=== PATIENT | male | born 1950 | race Caucasian/White ===

== ENCOUNTER 2017-03-07 16:00 | Inpatient (IN) | payer MEDICARE ==
[~2017-03-07] VITALS: Ht 177.8 cm; Wt 85.0 kg
--- NOTE | ~2017-03-07 | ECHO ---
Transesophageal Echocardiography Report (TA) Demographics Patient Name MARCUS MUNOZ Date of Study 03/08/2017 Patient Number [id number] Visit Number [id number] Date of 1950 Room Number G6308 Accession Number [id number] Gender Male Age 66 year(s) Referring Tyrell Rose MD Travel Pta Mikaela Son RDCS, Physician RVT Physician Interpreting Sina Newton Chlorine Cells Operator Physician MD Supervising Ordering Physician Sina Newton MD/MLP Nurse Stress Petroleum Engineering Professor Conclusions Summary The left ventricle/ right ventricle is normal in size . The estimated left ventricular ejection fraction is 60-65%. Interatrial septum appears grossly normal. The left ventricle is normal in size . Minimal thoracic aorta plaque. Calcified aorta, it is not well seen. No significant valvular abnormalities. There is no thrombus in the left atrial appendage. There is no LA or LA appendage thrombus or spontaneous contrast. No left atrial appendage mass. There is no evidence of patent foramen ovale or atrial septal defect by color Doppler. The left atrium is mildly dilated. No evidence for cardiac source of emboli. Procedure Type of Study TA procedure Procedure Date Date: 03/08/2017 Start: 02:40 PM Study Location: Inpatient Portable Technical Quality: Adequate visualization Indications:CVA. Appropriate Use Criteria: 9 Patient Status: Routine Rhythm: Within normal limits HR: 78 bpm BP: 127/70 mmHg Findings Left Ventricle The left ventricle is normal in size . No e/o LV apical thrombus. Right Ventricle Interatrial septum appears grossly normal. Left Atrium There is no thrombus in the left atrial appendage. There is no LA or LA appendage thrombus or spontaneous contrast. No left atrial appendage mass. There is no evidence of patent foramen ovale or atrial septal defect by color Doppler. The left atrium is mildly dilated. Right Atrium The right atrium is not dilated. Mitral Valve Normal mitral valve structure and function. Aortic Valve Normal aortic valve structure and function. Tricuspid Valve Normal appearing tricuspid valve. Pulmonic Valve Normal pulmonic valve structure and function. Miscellaneous Minimal thoracic aorta plaque. Calcified aorta, it is not well seen. The patient was brought to the [facility] lab in the fasting state after informed consent was obtained in the written and verbal format. He was prepped with Lidocaine gel and Cetacaine spray as usual. Bite block was placed by nm. Once adequate anesthesia was obtained with anesthesia guidance with propofol sedation the TA probe was placed by me down into the stomach. It was pulled back slightly after a few views were obtained in the transgastric level to the transesophageal position where the majority of the case was carried out. At the end of the case the probe was rotated and withdrawn. Patient tolerated the procedure well. Signature dtt: ES ROGEL dtd: 03/08/17 8730 Physician Self Edit
--- NOTE | ~2017-03-07 | OR ---
PATIENT'S NAME: MARCUS MUNOZ [facility] AGE: 66 Y [address] ROOM: [place] [address] LOCATION: GPCU ADMIT DATE: 03/07/2017 OR/Procedure Report DISCHARGE DATE: FAMILY PHYSICIAN: Mikaela Torres National Park Ranger ATTENDING PHYSICIAN: Leila Tian SURGEON: Milton Santillan MD DIRECTOR OF HOUSING: DATE OF PROCEDURE: 03/07/2017 PREOPERATIVE DIAGNOSIS: Acute ischemic leg, right sided. POSTOPERATIVE DIAGNOSIS: Acute ischemic leg, right sided. PROCEDURE: Attempted popliteal embolectomy and tibial embolectomy. TREE PRUNER: SILVANA Alonso. ANESTHESIA: General. ESTIMATED FLUID LOSS: 50 mL. FINDINGS: Despite removal of significant amount of clot burden from the tibial vessels as well as the popliteal artery, we did not have return of pulses in the foot. The patient likely ischemic for approximately five days. In one leg, he will likely require a below-knee amputation. INDICATIONS: The patient was brought into the operating room emergently from the emergency room. The patient presented with a 5-day history of severe pain in the foot which had now become numb and insensate. He still had minimal motor function intact. Foot was completely white and mottled and the patient states had been having pain for approximately 5 days prior to this. Only sought medical treatment today. Preop ultrasound showed that he had a distal popliteal and tibial clot with patent proximal vessels. The patient has no history of atrial fibrillation, but this is likely the source of his clot. DESCRIPTION OF PROCEDURE: The patient was brought to the operating room, placed supine on the operating room table, prepped and draped in a sterile manner. Preoperative time-out was performed. The patient received preoperative antibiotics. We made a standard approach to the popliteal artery as well as the tibial vessels. Using a medial approach, we transected the fascia, brought the gastrocnemius muscle inferiorly, dissected out the popliteal vein in a 360-degree fashion and moved it out of the way covering the arterial structures. We then gave 5000 units of heparin. We then placed vessel loops proximally and distally on the popliteal artery as well as the TP trunk. We then made arteriotomy. There was surinder clot right at the PATIENT'S NAME: MARCUS MUNOZ [facility] AGE: 66 Y [address] ROOM: [address] [address] [facility] AD[facility] DATE: 03/07/2017 OR/Procedure Report DISCHARGE DATE: FAMILY PHYSICIAN: Mikaela Torres National Park Ranger ATTENDING PHYSICIAN: Leila Tian arteriotomy. We then passed a three and four Tom both proximally and distally as well as a two Tom into the tibial vessels. Removed significant clot burden with back flow from the tibial vessels, and then reapproximated the artery with interrupted 6-0 Prolene. There was a good signal and pulse in the popliteal artery at this level. Performed Doppler test in the feet, but without any return of any signal, given the length that the patient went without care and without anticoagulation. He had a poor prognosis which I had explained to him prior to the surgery. We did not reverse heparin. We started a heparin drip on the table. We reapproximated deep layers with 2-0 and 3-0 Vicryl. Skin was closed with sebas. The patient was transferred to recovery room and to the floor. We would allow the foot to demarcate and then decide on the level of amputation. MD SOTERO SHEN/khang /[id number] d: 03/08/17 0141 t: 03/09/17 0929, OPERATIVE SUMMARY
--- NOTE | ~2017-03-07 | DS ---
PATIENT'S NAME: MARCUS MUNOZ [facility] AGE: 66 Y [address] ROOM: [place] [address] LOCATION: GPCU ADMIT DATE: 03/07/2017 Discharge Summary DISCHARGE DATE: 03/11/2017 FAMILY PHYSICIAN: Mikaela Torres Province Archivist ATTENDING PHYSICIAN: Leila Tian FINAL DIAGNOSES: 1. Acute ischemic right leg secondary to thrombus. 2. Adult onset diabetes mellitus. 3. Peripheral neuropathy. 4. Gastroesophageal reflux disease. PROCEDURE: He had a right common femoral and superficial femoral artery embolectomy and common femoral endarterectomy. Please see the history and physical dictated by Dr. Dee for details of admission. LABORATORY DATA: On admission, sodium 140, potassium 3.6, chloride 107, CO2 23, BUN 12, and creatinine 1.1. These values remained stable. At discharge, creatinine was 0.1. On admission, white blood cell count was 7.1, hemoglobin 15.8, hematocrit 46.8, and platelet count 249. Hemoglobin at discharge 12.9 and platelet count 211. RADIOLOGIC STUDIES: CT angiogram of the abdomen and lower extremities showed an elongated thrombus in the proximal right superficial femoral artery that had the windsock morphology and nearly completely occluded the lumen. Cardiovascular Data: Transthoracic echocardiogram showed an EF was 60% to 65% and did not show any evidence of a left atrial appendage. HOSPITAL COURSE: The patient presented with an acute ischemic right leg. The patient was initiated on heparin and was found to have hyperglycemia. He had been told in the past that he was borderline diabetic. He was put on sliding scale insulin. Cardiology did see him and did not notice any left atrial appendage. A CT angiogram was done, results of which already given. Dr. Santillan did feel that the patient needed to go to the operating room that evening and requested that the heparin not be discontinued en route. The patient underwent the procedure. Please see Dr. Santillan's op note for full details. Postoperatively, he was put back on PCU and continued on IV heparin and a workup was done for hypercoagulable state. On the , it was felt that he was stable to be switched to Xarelto. Postoperatively, his incision did well. He continued to have a mottled, purplish-discolored great toe which the patient was well aware would need to be followed as an outpatient. In terms of his diabetes, he had been initiated on metformin. His sugars on PATIENT'S NAME: MARCUS MUNOZ [facility] AGE: 66 Y [address] ROOM: [id number] [place], [place] [address] LOCATION: GPCU ADMIT DATE: 03/07/2017 Discharge Summary DISCHARGE DATE: 03/11/2017 FAMILY PHYSICIAN: Mikaela Torres Province Archivist ATTENDING PHYSICIAN: Leila Tian the 1st were; his fasting sugar was 75. Decision was made to cut that down to Glucophage 500 mg once daily. It was felt that the patient was stable for discharge and discharged to home. He is follow up with Vascular in [address] Mikaela Torres in 3-5 days at [facility]. MEDICATIONS: 1. Protonix 40 mg daily. 2. Cymbalta 60 mg daily. 3. Multivitamin daily. 4. Lipitor 40 mg daily. 5. Metformin 500 mg daily. 6. Xarelto 20 mg twice daily with meals. 7. Cummings 1-2 every 4 hours as needed for pain. 8. He was given a coupon for the Xarelto. This case was discussed in detail with Dr. Torres. The side effects of the new medications were explained to the patient. JANNY CERVANTES MD LAW/modl /[id number] d: 03/12/171909 t: 03/15/171929, DISCHARGE SUMMARY
--- NOTE | ~2017-03-07 | OR ---
PATIENT'S NAME: MARCUS MUNOZ [facility] AGE: 66 Y [address] ROOM: [place] [address] LOCATION: GPCU ADMIT DATE: 03/07/2017 OR/Procedure Report DISCHARGE DATE: FAMILY PHYSICIAN: Mikaela Torres Dust Collector Operator ATTENDING PHYSICIAN: Jaylan MORALES SURGEON: Milton Santillan MD PHARMACIST IN CHARGE OWNER: DATE OF PROCEDURE: 03/09/2017 PREOPERATIVE DIAGNOSIS: Acute embolic clot to the common femoral artery on the right. POSTOPERATIVE DIAGNOSIS: Acute embolic clot to the common femoral artery on the right. PROCEDURE PERFORMED: Right common femoral and superficial femoral artery embolectomy. AUTOMOTIVE FINANCE MANAGER: SILVANA Alonso ANESTHESIA: General. ESTIMATED BLOOD LOSS: 50 mL. INDICATION FOR PROCEDURE: This is a patient whom we took approximately 48 hours ago for a popliteal and tibial embolectomy. At that time, duplex would not show any further clot in the more proximal portions of the artery. In investigating where his clot was coming from, he underwent an echo as well as a CT angio of the abdomen and pelvis. The CT angio showed a heavily calcified aorta with multiple sources of possible embolic clot, but it also did show that he had a large clot sitting in his common femoral and extending in his SFA on the right. We brought him back to the operating room this morning to remove that clot and restore normal blood flow to his right lower extremity. DESCRIPTION OF PROCEDURE: The patient was brought to the operating room, placed supine on the operating table, and prepped and draped in a sterile manner. Preoperative time-out was performed. The patient received preoperative antibiotics. We made a transverse incision in the right groin, dissected down to the fascia, incised the fascia in a longitudinal manner, and dissected out the common femoral, superficial femoral, as well as the profunda. We placed loops on all 3 vessels. We gave 5000 units of heparin. We clamped on all 3 vessels. We then made a transverse arteriotomy. On doing so, we had no backflow from the SFA. We passed a four Tom multiple times, removing a large burden of clot. We also opened up the common femoral, evacuating the clot from the common femoral as well. On further investigation PATIENT'S NAME: MARCUS MUNOZ [facility] AGE: 66 Y [address] ROOM: [address] [address] [facility] AD[facility] DATE: 03/07/2017 OR/Procedure Report DISCHARGE DATE: FAMILY PHYSICIAN: Mikaela Torres Dust Collector Operator ATTENDING PHYSICIAN: Jaylan MORALES of the artery, we ligated significant plaque burden right there at the level of the common femoral, SFA, and profunda junction. We extended our incision in a longitudinal manner, reapproximated the sidewalls with interrupted 5-0 Prolene, and then did a standard bovine pericardial patch using 2 running 6-0 [place] sutures. We removed the clamps. There was excellent flow in the SFA. There was a strong PT signal. The patient has never regained an anterior tibial signal even from his first operation. Deep layers were closed with 2-0 and 3-0 Vicryl. Heparin was not reversed. Skin was closed with sebas. The patient tolerated the procedure well and was transferred to the recovery room and then back to the floor. MD SOTERO SHEN/modl /[id number] d: 03/09/17 1201 t: 03/13/17 1458, OPERATIVE SUMMARY
[~2017-03-07 16:00] MED LIST changes: -GLUCOPHAGE500 MG PO; -LIPITOR40 MG PO; -NORCO 5-325 TA1 EACH PO; -ONE DAILY FOR1 EAC1 PO; -XARELTO20 MG PO
[2017-03-07] MEDS ORDERED: ONE DAILY FOR1 EAC1 PO (17:17)
--- NOTE | 2017-03-07 17:25 | NUR ---
Pt is 66 y/o male admit for right ischemic lower leg for . Pt allergic to aspirin. Red and yellow bracelet on. Hx gerd,hiatal hernia,asthma as child,pneumonia,seasonal allergies,hx N/T in hands and feet. Resides at home alone. Went to the Dr today for right foot pain which started 5 days ago and his R)great toe went numb yesterday. Pt taken to [facility] for an embolectomy on R)leg. No pedal pulses on R)foot. R)great toe blue/purple in color. Pt alert and oriented x3.
[2017-03-07 17:56] LABS: BASOPHIL % 0.4 %; EOSINOPHIL # 0.1 K/uL (0.0-0.5); HEMATOCRIT 46.8 % (37.0-53.0); HEMOGLOBIN 15.8 g/dL (11.0-16.0); IMMATURE GRANULOCYTE % 0.1 %; LYMPHOCYTE # 1.9 K/uL (0.8-4.0); LYMPHOCYTE % 26.9 %; MCH 30.3 pg (27.0-34.0); MCHC 33.8 gm/dL (32.0-36.5); MCV 89.8 fl (83.0-98.0); MONOCYTE # 0.7 K/uL (0.0-1.0); MONOCYTE % 10.1 %; MPV 9.2 fl (9.4-12.4); NEUTROPHIL # (ANC) 4.4 K/uL (1.4-9.0); NEUTROPHIL % 61.5 %; NRBC % 0 /100WBC (0-0.00); PLATELET COUNT 269 K/uL (150-450); RBC 5.21 M/uL (3.50-5.50); WBC 7.1 K/uL (4.0-11.0)
[2017-03-07 18:09] LABS: ANION GAP 13.6 (10.0-19.0); BLOOD UREA NITROGEN 12 mg/dL (6-24); CHLORIDE 107 mMol/L (96-110); CO2 23 mMol/L (22-32); CREATININE 1.1 mg/dL (0.6-1.3); ESTIMATED GFR (MDRD EQUATION) > 60; POTASSIUM 3.6 mMol/L (3.7-5.1); SODIUM 140 mMol/L (135-145)
[2017-03-07 20:52] LABS: PROTIME 10.5 SECONDS (9.8-11.4)
[2017-03-08 02:52] LABS: BASOPHIL % 0.1 %; HEMATOCRIT 44.3 % (37.0-53.0); HEMOGLOBIN 14.9 g/dL (11.0-16.0); IMMATURE GRANULOCYTE % 0.3 %; LYMPHOCYTE # 1.2 K/uL (0.8-4.0); LYMPHOCYTE % 11.1 %; MCH 30.5 pg (27.0-34.0); MCHC 33.6 gm/dL (32.0-36.5); MCV 90.8 fl (83.0-98.0); MONOCYTE # 0.5 K/uL (0.0-1.0); MONOCYTE % 4.9 %; MPV 9.1 fl (9.4-12.4); NEUTROPHIL # (ANC) 8.8 K/uL (1.4-9.0); NEUTROPHIL % 83.6 %; NRBC % 0 /100WBC (0-0.00); PLATELET COUNT 277 K/uL (150-450); RBC 4.88 M/uL (3.50-5.50); RDW-CV 13.1 % (11.9-14.6); WBC 10.5 K/uL (4.0-11.0)
[2017-03-08 03:04] LABS: ANION GAP 11.6 (10.0-19.0); BLOOD UREA NITROGEN 12 mg/dL (6-24); CALCIUM 8.1 mg/dL (8.5-10.5); CHLORIDE 106 mMol/L (96-110); CO2 24 mMol/L (22-32); CREATININE 0.9 mg/dL (0.6-1.3); ESTIMATED GFR (MDRD EQUATION) > 60; POTASSIUM 4.6 mMol/L (3.7-5.1); SODIUM 137 mMol/L (135-145)
--- NOTE | 2017-03-08 04:29 | NUR ---
Patient returns to floor from PACU at 2039. Has endraectomy performed by Dr. Santillan. Patient R) foot and great toe were mottled and purple upon arrival to [facility] from [facility]. Returns from OR with incisional site to R) popliteal site. Drainage is small and there is no new noted throughout this shift. Marked borders wit sharpie. [place] dressing to site C/D/I. Toe and foot are now cool to touch, similar to temperature of L) foot. Doppler pulse located by Dr. Dee on pedal but hard to identify. Popliteal pulse is faint. Dr. Santillan reports that patient may have amputation in the future. Patient VSS on R/A. PRN norco given for incisional site pain. Calm and cooperative with cares. No numbness/tingling/pain in R) foot. To advance to a regular diet this AM.
--- NOTE | 2017-03-08 18:09 | NUR ---
Significant Events: Patient is A&Ox3 and cooperative with cares. Patient is a stand-by assist. Vital signs: HR 60-70's, SBP 110-120's. Patient on room air with clear lung sounds. Patient voided x2 per urinal, no BM's. Patient has a dressing to his right medial knee, with no new drainage outside what had been previously marked. IV's in right wrist that and left posterior forearm. Patient had a CTA and TA today with no complications. Embolism detected in right femoral artery and patient to have procedure in OR tomorrow. Continue per plan of care.
--- NOTE | 2017-03-09 04:44 | NUR ---
Significant Event:Patient very pleasant. A/Ox3. VSS on RA. Afebrile. Kept on bedrest d/t clot in femoral. Heparin gtt continues at 1200 units/h with next ptthp at 0500. Per MD order do not stop heparin even for transfer to OR. Plan is for R)common femoral embolectomy at 0830. Patient has been NPO since midnight. Voids per urinal with no difficulties. Follow up:Surgical checklist started and on the chart.
[2017-03-09 05:57] LABS: ANION GAP 10.4 (10.0-19.0); BLOOD UREA NITROGEN 8 mg/dL (6-24); CHLORIDE 110 mMol/L (96-110); CO2 24 mMol/L (22-32); CREATININE 0.8 mg/dL (0.6-1.3); ESTIMATED GFR (MDRD EQUATION) > 60; POTASSIUM 4.4 mMol/L (3.7-5.1); SODIUM 140 mMol/L (135-145)
[2017-03-09 06:03] LABS: BASOPHIL % 0.5 %; EOSINOPHIL # 0.2 K/uL (0.0-0.5); EOSINOPHIL % 1.9 %; HEMATOCRIT 37.8 % (37.0-53.0); HEMOGLOBIN 12.4 g/dL (11.0-16.0); IMMATURE GRANULOCYTE % 0.4 %; LYMPHOCYTE # 2.4 K/uL (0.8-4.0); LYMPHOCYTE % 30.4 %; MCH 30.2 pg (27.0-34.0); MCHC 32.8 gm/dL (32.0-36.5); MONOCYTE # 0.8 K/uL (0.0-1.0); MONOCYTE % 10.5 %; MPV 9.3 fl (9.4-12.4); NEUTROPHIL # (ANC) 4.4 K/uL (1.4-9.0); NEUTROPHIL % 56.3 %; NRBC % 0 /100WBC (0-0.00); PLATELET COUNT 227 K/uL (150-450); RBC 4.11 M/uL (3.50-5.50); RDW-CV 13.3 % (11.9-14.6); WBC 7.8 K/uL (4.0-11.0)
--- NOTE | 2017-03-09 15:51 | NUR ---
Significant Event: A/Ox3. [id number]. P-60-70s. Afebrile. Room air. L) FA IV infusing heparin 1200units hr (next ppthp at 1800) and D5 1/2 with 20mEq of KCL 50ml/hr. Patient had endarterectomy and embolectomy in OR this AM. Returned to PCU at noon. R) groin air strip dressing D/I with shadowed drainage marked. No hematoma. Diastal pulses dopplered. Color to R) foot/toes has improved now there is minimal purple color to big toe and 2nd toe. 1+ edema to R) Lower extremity. R) popliteal dressing D/I shadowed drainage no change this shift. Voids per urinal. Off bedrest at 1700.
--- NOTE | 2017-03-10 04:42 | NUR ---
Significant Event:A&O. VSS.RA. R GROIN WITH MARKED DRAINAGE. UP TO BATHROOM/SBA. TIBIAL BANDAGE WITH MARKED DRAINAGE. C/O PAIN AT INCISION SITE AND TOES. NORCO GIVEN x2. morphine x1. WARM TO TOUCH, DOPPLER R PEDAL PULSE. HEPARIN GTT @ 1100U/HR CURRENTLY. Follow up:CONT W/PLAN OF CARE
[2017-03-10 07:36] LABS: BASOPHIL % 0.5 %; EOSINOPHIL # 0.2 K/uL (0.0-0.5); EOSINOPHIL % 2.6 %; HEMATOCRIT 38.5 % (37.0-53.0); HEMOGLOBIN 12.7 g/dL (11.0-16.0); IMMATURE GRANULOCYTE % 0.2 %; LYMPHOCYTE # 1.8 K/uL (0.8-4.0); LYMPHOCYTE % 28.1 %; MCH 30.7 pg (27.0-34.0); MONOCYTE # 0.7 K/uL (0.0-1.0); MONOCYTE % 10.5 %; MPV 9.1 fl (9.4-12.4); NEUTROPHIL # (ANC) 3.7 K/uL (1.4-9.0); NEUTROPHIL % 58.1 %; NRBC % 0 /100WBC (0-0.00); PLATELET COUNT 206 K/uL (150-450); RBC 4.14 M/uL (3.50-5.50); RDW-CV 13.7 % (11.9-14.6); WBC 6.3 K/uL (4.0-11.0)
[2017-03-10 07:47] LABS: BLOOD UREA NITROGEN 6 mg/dL (6-24); CHLORIDE 105 mMol/L (96-110); CO2 28 mMol/L (22-32); CREATININE 0.7 mg/dL (0.6-1.3); ESTIMATED GFR (MDRD EQUATION) > 60; SODIUM 139 mMol/L (135-145)
--- NOTE | 2017-03-10 19:22 | NUR ---
Significant Event: A/Ox3. VSS. Room air. IV saline locked. R) groin air strip dressinf D/I with shadow drainage marked no changes this shift. L) popliteal incision TYLER, stappled with edges approximated. Pulses dopplerable in the R) lower extremity. Heparin gtt discontinued and patient started on Xeralto. New diabetic started on metformin. Diabetic ed to see patient prior to discharge home tomorrow.
[2017-03-11 04:59] LABS: BASOPHIL % 0.3 %; EOSINOPHIL # 0.2 K/uL (0.0-0.5); EOSINOPHIL % 2.6 %; HEMATOCRIT 38.1 % (37.0-53.0); HEMOGLOBIN 12.9 g/dL (11.0-16.0); IMMATURE GRANULOCYTE % 0.3 %; LYMPHOCYTE # 1.3 K/uL (0.8-4.0); LYMPHOCYTE % 20.7 %; MCH 30.9 pg (27.0-34.0); MCHC 33.9 gm/dL (32.0-36.5); MCV 91.1 fl (83.0-98.0); MONOCYTE # 0.7 K/uL (0.0-1.0); MONOCYTE % 10.7 %; MPV 9.4 fl (9.4-12.4); NEUTROPHIL # (ANC) 4.1 K/uL (1.4-9.0); NEUTROPHIL % 65.4 %; NRBC % 0 /100WBC (0-0.00); PLATELET COUNT 211 K/uL (150-450); RBC 4.18 M/uL (3.50-5.50); RDW-CV 13.5 % (11.9-14.6); WBC 6.2 K/uL (4.0-11.0)
--- NOTE | 2017-03-11 07:18 | NUR ---
Significant Event: Patient is alert/oriented x3. Vital signs are stable. On room air. [place] given x2 last night, with relief. Right foot doppled, good pulses. Patient ambulates in room independently. Last dose of Ancef this morning. Follow up: Dismiss to home today?
--- NOTE | 2017-03-11 11:48 | NUR ---
Introduced self and care management services to patient. Going home today. Denies concerns about going home. Lives alone. Says he has 4 sons in the area who can help him if he needs anything at home. Denies needs.
[2017-03-11] MEDS ORDERED: LIPITOR40 MG PO (11:54)
[2017-03-11] MEDS ORDERED: GLUCOPHAGE500 MG PO (11:55)
[2017-03-11] MEDS ORDERED: XARELTO20 MG PO (11:56)
[2017-03-11] MEDS ORDERED: NORCO 5-325 TA1 EACH PO (11:57)
--- NOTE | 2017-03-11 12:40 | NUR ---
[facility] note: [id number] Spent time with patient to discuss and teaching regarding new diagnosis of type 2 diabetes. Started on Metfomrin while here is hospital and Dr. Lebron recommended to have patient take 500 mg once daily at home. Discussed action and possible side effects of the medication. Provided and demonstrated use of the Contour meter, recommended to test blood sugars twice per day, FBS in a.m. and 2 hours following a meal and to record all results in log book for MD to review at next office visit. Discussed target levels and when to notify MD. Current A1C was 6.7 %. Foot care and neuropathy explained to patient and how by having proper control of blood sugars we can reduce risks of further complications related to eyes, kidneys, heart and nerves. Also discussed risks of infection, after recent surgery and how to promote wound healing. We also recommended for him to follow up with Margaret Camp RN, CDE at [facility] for on-going education. Patient states he feels that he eats a pretty "healthy diet" and does not eat a lot of sweets, but did recommend that he receive some education with a dietitian some soon. Patient agrees to this and will inform CDE at [facility] for carb counting education. Started to complete the Diabetes Survival Skills checklist with patient, patient is anxious to go home. By the time CDE could get back to patient's room to provided more education, patient had been dismissed.
--- NOTE | 2017-03-11 13:36 | NUR ---
PATIENT GIVEN WRITTEN DISMISSAL INSTRUCTIONS INCLUDING NEW HOME MEDICATION LIST WITH INFORMATION ON NEW MEDICATIONS, PRESCRIPTIONS, FOLLOW-UP APPOINTMENT TIMES, DIET RESTRICTIONS AND ACTIVITY RESTRICTIONS INCLUDING NO HEAVY LIFTING FOR 2 WEEKS. INSTRUCTIONS ON HOW TO CARE FOR INCISIONS AT HOME ALSO PROVIDED TO PATIENT WITH R) GROIN AND R) LEG INCISIONS CLEAN AND STAPLED. DRY GAUZE APPLIED TO RIGHT GROIN AFTER SHOWERING AND RIGHT LEG INCISION LEFT OPEN TO AIR. PATIENT STATES UNDERSTANDING OF INFORMATION DISCUSSED WITH RN. PIV TO RIGHT AND LEFT WRIST/FA DC'D WITH GAUZE AND COBAN APPLIED. TELEMETRY DC'D AND PATIENT DRESSED IN OWN CLOTHING AFTER INDEPENDENT SHOWER. MD ORDER FOR PATIENT OK TO DRIVE SELF HOME FROM HOSPITAL. TAKEN TO FRONT OF [facility] ENTRANCE VIA WHEELCHAIR ACCOMPANIED BY RN AND PATIENT BELONGINGS. WHEELED TO PATIENT'S PERSONAL CAR AT 1230.
== END 2017-03-11 12:30 | disposition disaster alternative care site (69) | DRG 254 ==
LOC: EDSTATUS 16:00 → GSOCO 16:00 → GPCU 16:18
PROVIDERS: Anesthesiology; Internal Medicine Interventional Cardiology; Surgery Vascular Surgery; ADMIT Internal Medicine
DX: I74.3 Embolism and thrombosis of arteries of the lower extremities (principal); E11.42 Type 2 diabetes mellitus with diabetic polyneuropathy; K21.9 Gastro-esophageal reflux disease without esophagitis; I99.8 Other disorder of circulatory system
CPT/HCPCS: C1757; J0690; J1644; J2270; J2720; J3010; J3480; J7030; J7050; J7120; Q9967

== ENCOUNTER → 2017-03-07 | Outpatient (CLI) | payer MEDICARE ==
[~2017-03-07] MED LIST: ADVIL200 MG PO; CYMBALTA60 MG PO; GLUCOPHAGE500 MG PO; LIPITOR40 MG PO; NORCO 5-325 TA1 EACH PO; ONE DAILY FOR1 EAC1 PO; PROTONIX40 MG PO; XARELTO20 MG PO
== END | disposition disaster alternative care site (69) ==
LOC: LFPA 11:58
DX: G62.1 Alcoholic polyneuropathy (principal)

== ENCOUNTER → 2017-03-07 | Outpatient (CLI) | payer MEDICARE ==
--- NOTE | ~2017-03-07 | ENPV ---
Vascular Lower Arterial Plethysmography Procedure Demographics Patient Name MARCUS MUNOZ Date of Study 03/07/2017 Patient Number [id number] Gender Male Date of 1950 Age 66 Visit Number [id number] Height Accession Number [id number] Weight Room Number BSA BMI Referring Brian Rose MD Physician Physician Physician Ordering Physician Hot Stick Man Laborer Landscape Lisbeth Layne [facility] Dana Matthews Conclusions Summary No pulses found on Right Dorsalis Pedis, No pulses found when attempting toes pressures on the right. See imaging that is consistent with an occlusion Right GIANNA is 0.49 indicating severe disease. Normal GIANNA on the left with an GIANNA of 1.05 Procedure Type of Study: Extremities Arteries:Lower Arterial Plethysmography, Ankle/Brachial Indicies. - Preliminary reported to:Dr. Santillan. Velocities are measured in cm/s ; Diameters are measured in cm Pressures + ++--------+-----+----+--------+-----+ ! !!Right ! !Left! ! ! + ++--------+-----+----+--------+-----+ !Location !!Pressure!Ratio! !Pressure!Ratio! + ++--------+-----+----+--------+-----+ !Ankle PT !!70 !0.49 ! !141 !0.98 ! + ++--------+-----+----+--------+-----+ !DP !!0 !0 ! !151 !1.05 ! + ++--------+-----+----+--------+-----+ !Great Toe !! ! ! !87 !0.6 ! + ++--------+-----+----+--------+-----+ - Brachial Pressure:Right: 144.Left:138. - GIANNA:Right: 0.49.Left: 1.05. Plethysmographic Digit Evaluation +---------++--------+-----+ ++--------+-----+ + ! !!Right ! !Left !! ! ! ! +---------++--------+-----+ ++--------+-----+ + !Location !!Pressure!Ratio!PPG Wave Form !!Pressure!Ratio!PPG Wave Form ! +---------++--------+-----+ ++--------+-----+ + !Great Toe!! ! ! !!87 !0.6 ! ! +---------++--------+-----+ ++--------+-----+ + Impressions Right Impression No pulses found on Right Dorsalis Pedis, No pulses found when attempting toes pressures on the right. See imaging that is consistent with an occlusion Right GIANNA is 0.49 indicating severe disease. Left Impression Normal GIANNA on the left with an GIANNA of 1.05 Signature dtt: BANG SANTILLAN dteffie: 03/07/17 1404 Physician Self Edit
--- NOTE | ~2017-03-07 | ENPV ---
Vascular Lower Extremities Arterial Duplex Procedure Demographics Patient Name MARCUS MUNOZ Date of Study 03/07/2017 Patient Number [id number] Gender Male Date of 1950 Age 66 Visit Number [id number] Height Accession Number [id number] Weight Room Number BSA BMI Referring Brian Rose MD Physician Physician Physician Ordering Physician Brian Winston MD Senior Hr Generalist Dana Watson RDCS, RVT [place] Llamasy RVT, RDCS Conclusions Summary Duplex imaging of the right leg reveals occlusion of the right distal popliteal artery, posterior tibial artery, anterior tibial artery, and dorsalis pedis artery. The blockages appear to be acute in nature and without collaterals. There is a hemodynamically significant stenosis of the proximal superficial femoral artery with a peak velocity of 284 cm/s. The right distal peroneal artery is present but with dampened, monophasic flow. Procedure Type of Study: Extremities Arteries:Lower Extremities Arterial Duplex, Arterial Lower Extremity Right. Indications for Study:Claudication, Cold sensitivity/discoloration of extremities or digits, Pain in Limb and PVD. Appropriate Use Criteria:9 Patient Status:Routine. Study Location:Vascular Lab. Technical Quality:Adequate visualization. - Preliminary reported to:Dr Meek. Velocities are measured in cm/s ; Diameters are measured in cm LE Duplex Measurements + ++-----+ +----+---+ + ! !!Right! !Left! ! ! + ++-----+ +----+---+ + !Location !!PSV !Wave Desc.! !PSV!Wave Desc. ! + ++-----+ +----+---+ + !Femoral !!100 !Triphasic ! !96 !Triphasic ! + ++-----+ +----+---+ + !PFA !!88 !Triphasic ! ! ! ! + ++-----+ +----+---+ + !Prox SFA !!284 !Triphasic ! !98 !Triphasic ! + ++-----+ +----+---+ + !Mid SFA !!50 !Triphasic ! ! ! ! + ++-----+ +----+---+ + !Dist SFA !!46 !Triphasic ! ! ! ! + ++-----+ +----+---+ + !Prox Popliteal !!35 !Triphasic ! ! ! ! + ++-----+ +----+---+ + !Mid Popliteal !!21 !Biphasic ! ! ! ! + ++-----+ +----+---+ + !Dist Popliteal !! !Occluded ! ! ! ! + ++-----+ +----+---+ + !Prox MANDREL PULLER !! !Occluded ! ! ! ! + ++-----+ +----+---+ + !Mid MANDREL PULLER !! !Occluded ! ! ! ! + ++-----+ +----+---+ + !Dist MANDREL PULLER !! !Occluded ! ! ! ! + ++-----+ +----+---+ + !Prox SANAM !! !Occluded ! ! ! ! + ++-----+ +----+---+ + !Mid SANAM !! !Occluded ! ! ! ! + ++-----+ +----+---+ + !Dist SANAM !! !Occluded ! ! ! ! + ++-----+ +----+---+ + !DP !! !Occluded ! ! ! ! + ++-----+ +----+---+ + !Dist Peroneal !!11 !Monophasic! ! ! ! + ++-----+ +----+---+ + Signature Electronically signed by Tyrell Rose MD([facility] physician) on 03/09/2017 08:59 AM dtt: dtd: 03/07/17 1438 Physician Self Edit
== END | disposition disaster alternative care site (69) ==
LOC: GCAR 13:00
DX: M79.671 Pain in right foot (principal); I73.9 Peripheral vascular disease, unspecified; G62.1 Alcoholic polyneuropathy; R23.0 Cyanosis

== ENCOUNTER 2017-04-26 11:30 | Emergency (ER) | payer MEDICARE ==
--- NOTE | ~2017-04-26 | ER ---
PATIENT'S NAME: MARCUS MUNOZ [facility] AGE: 66 Y [address] ROOM: [place] [address] LOCATION: [facility] ADMIT DATE: 04/26/2017 ER/Outpatient Report DISCHARGE DATE: 04/26/2017 FAMILY PHYSICIAN: Mikaela Torres [employer] ATTENDING PHYSICIAN: Liborio Macdonald TIME OF ARRIVAL: 1136. TIME OF EXAM: 1145. CHIEF COMPLAINT: Vomiting. HISTORY OF PRESENT ILLNESS: The patient states that since midnight he has been having problems with vomiting. He has vomited several times to the point that his abdomen is sore. States he had a normal bowel movement yesterday. Reports he has a bad taste in his mouth. Has not had a chest pain. Has not felt short of breath. Reports he has not had any alcohol for the past 4 days. ALLERGIES: ASPIRIN. MEDICATIONS: On his chart and were reviewed by me. We did get current records from [facility] office, and he did get started on Cipro yesterday. PAST MEDICAL HISTORY: DVT, [id number] diabetes, hypertension, asthma, ETOH abuse, and peripheral neuropathy. PAST SURGERIES: Removal of thrombus of the right leg 1 month ago. SOCIAL HISTORY: Denies use of tobacco or drugs, but does drink alcohol on a regular basis. Reports his primary provider is Dr. Torres. REVIEW OF SYSTEMS: All negative other than those mentioned in the HPI. PHYSICAL EXAMINATION: VITAL SIGNS: He weighed 78.1 kg. Blood pressure was 148/86, pulse of 82, PATIENT'S NAME: MARCUS MUNOZ [facility] AGE: 66 Y [address] ROOM: [place] [address] LOCATION: [facility] ADMIT DATE: 04/26/2017 ER/Outpatient Report DISCHARGE DATE: 04/26/2017 FAMILY PHYSICIAN: Mikaela Torres [employer] ATTENDING PHYSICIAN: Liborio Macdonald respirations 20, temperature of 97, and O2 saturation is 98% on room air. GENERAL: He is awake, alert, and oriented x4. SKIN: [place], warm, and dry. LUNGS: Respirations are even and nonlabored. Lung sounds are clear throughout. HEART: Regular rate and rhythm. ABDOMEN: Soft and nondistended. Bowel sounds are present. EMERGENCY DEPARTMENT COURSE: Saline lock was initiated. Fluids of normal saline were started at a wide- open rate. He was given Zofran 4 mg IV. Lab work was drawn. CBC is within normal limits. Chem panel is within normal limits. Alcohol was negative. Amylase was 161, lipase was 142, magnesium was 1.8. Procalcitonin was negative. Lactate was 3.8. Banana bag was initiated on the patient after the liter of saline was completed. He was able to urinate, give us a clean-catch UA. It was positive for leukocytes, negative for nitrites, and on micro white count was 2 to 5 with many bacteria. He is currently on ciprofloxacin, which was started yesterday. His vital signs remained stable while he was here in the ER. He did not vomit while he was here in the ER. Banana bag was completed. IMPRESSION: 1. Vomiting. 2. Ethanol abuse history. 3. History of urinary tract infection. Currently being treated with Cipro. PLAN: The patient will be discharged home. Rest. Fluids. No alcohol. Easy to digest foods. Continue his current medications. Follow up with Dr. Torres if symptoms persist or worsen in the next 2 to 3 days or return to the ER. He verbalized understanding. JONELLE FERRIS APRN FOR MD DARIN MITCHELL/khang /[id number] d: 04/26/17 2226 t: 05/06/17 0710, OUTPATIENT REPORT
[~2017-04-26 11:30] MED LIST changes: +GLUCOPHAGE500 MG PO; +LIPITOR40 MG PO; +NORCO 5-325 TA1 EACH PO; +ONE DAILY FOR1 EAC1 PO; +XARELTO20 MG PO
[2017-04-26 12:08] LABS: BASOPHIL % 0.2 %; HEMATOCRIT 44.6 % (37.0-53.0); HEMOGLOBIN 15.8 g/dL (11.0-16.0); IMMATURE GRANULOCYTE % 0.4 %; LYMPHOCYTE # 0.7 K/uL (0.8-4.0); LYMPHOCYTE % 13.8 %; MCH 32.4 pg (27.0-34.0); MCHC 35.4 gm/dL (32.0-36.5); MCV 91.4 fl (83.0-98.0); MONOCYTE # 0.5 K/uL (0.0-1.0); MONOCYTE % 10.1 %; MPV 9.2 fl (9.4-12.4); NEUTROPHIL # (ANC) 3.9 K/uL (1.4-9.0); NEUTROPHIL % 75.5 %; NRBC % 0 /100WBC (0-0.00); PLATELET COUNT 175 K/uL (150-450); RBC 4.88 M/uL (3.50-5.50); RDW-CV 18.1 % (11.9-14.6); WBC 5.1 K/uL (4.0-11.0)
[2017-04-26 12:19] LABS: INR - (THERAPEUTIC) 1.26 (0.92-1.07); PROTIME 13.3 SECONDS (9.8-11.4); PTT 31 SECONDS (25-32)
[2017-04-26 12:26] LABS: ALBUMIN 3.6 gm/dL (3.5-5.0); ALK PHOS 131 IU/L (33-138); ALT 35 IU/L (12-78); ANION GAP 14.8 (10.0-19.0); AST 34 IU/L (10-40); BLOOD UREA NITROGEN 15 mg/dL (6-24); CALCIUM 9.2 mg/dL (8.5-10.5); CHLORIDE 104 mMol/L (96-110); CO2 24 mMol/L (22-32); CREATININE 0.8 mg/dL (0.6-1.3); ESTIMATED GFR (MDRD EQUATION) > 60; POTASSIUM 3.8 mMol/L (3.7-5.1); SODIUM 139 mMol/L (135-145); TOTAL BILIRUBIN 0.9 mg/dL (0.0-1.5); TOTAL PROTEIN 7.5 g/dL (6.0-8.4)
[2017-04-26 13:32] LABS: BLOOD URINE 10 /UL (NEGATIVE); COLOR URINE YELLOW (YELLOW); GLUCOSE URINE NEGATIVE (NEGATIVE); KETONE URINE 15 mg/dL (NEGATIVE); LEUKOCYTES URINE 25 /UL (NEGATIVE); NITRITE URINE NEGATIVE (NEGATIVE); PROTEIN URINE 30 mg/dL (NEGATIVE); TURBIDITY URINE 2+ (CLEAR); UROBILINOGEN URINE 1 mg/dL (NORMAL)
[2017-04-26 13:51] LABS: EPITHELIAL URINE 0-2 #/HPF (NEGATIVE); RBC URINE 0-2 #/HPF (NEGATIVE)
[2017-04-26 13:52] LABS: BACTERIA URINE MANY (NEGATIVE); MUCUS URINE 4+ (NEGATIVE)
== END 2017-04-26 14:25 | disposition disaster alternative care site (69) ==
LOC: GMED 11:30
PROVIDERS: Emergency Medicine; Nurse Practitioner Family
DX: R11.10 Vomiting, unspecified (principal); N39.0 Urinary tract infection, site not specified; F10.10 Alcohol abuse, uncomplicated; E11.42 Type 2 diabetes mellitus with diabetic polyneuropathy; I10 Essential (primary) hypertension; J45.909 Unspecified asthma, uncomplicated; Z86.718 Personal history of other venous thrombosis and embolism; Z88.6 Allergy status to analgesic agent; Z79.899 Other long term (current) drug therapy
CPT/HCPCS: G0480; J2405; J3411; J7030